=== PATIENT | female | born 1960 | race Caucasian/White ===

== ENCOUNTER → 2017-05-12 | Outpatient (CLI) | payer BC ==
[~2017-05-12] MED LIST: FLOMAX0.4 MG PO; IBUPROFEN PO; IMITREX PO; LASIX PO; NEXIUM; PHENERGAN PO; PROZAC; TYLOX 5/500 CAP1 CAP PO
--- NOTE | ~2017-05-12 | CR63 ---
[facility] A Service of [facility] RADIOLOGY TEXT RESULTS PATIENT: SKYLA KOVACS LOCATION: [facility] : 58 UNIT #: [id number] AGE: [address]: CLARK APONTE APRN SEX: F ORDER DR: [id number] [facility] [address] [place], [place] [address] [id number] O MR#: [id number] Acc #: [id number] NAME: SKYLA KOVACS : 1960 SEX: F STUDY DATE/TIME: 05/12/2017 16:35 UNIT: [facility] ROOM: STUDY DESCRIPTION: CR Chest 2 View Attending Physician: Rosita Aponte Aprn Referring Physician: Rosita Aponte Aprn Ordering Physician: Staff Doctor Not On Primary Care Physician: Isamar Martines A.P.R.N. MEDICAL IMAGING REPORT This report is preliminary unless electronic signature is present EXAM Two-view chest, 05/12/2017. HISTORY 57-year-old female with cough and wheezing for 5 days. COMPARISON STUDIES Comparison chest, 01/14/2008. FINDINGS Two views of the chest demonstrate clear lungs. No pleural effusion or pneumothorax. Heart size and mediastinum are normal. Pulmonary vasculature normal. IMPRESSION No acute cardiopulmonary findings. Dictated by... Shon Thrasher M.D. THIS IS AN ELECTRONICALLY VERIFIED REPORT Shon Thrasher M.D. at 05/15/2017 1:19 PM JANY/mina TD: 05/12/2017 22:25 JOB #: [id number] MEDICAL IMAGING REPORT Page 1 of 1 COPY
== END | disposition home or self-care (01) ==
LOC: CRAD 16:04
DX: R05 Cough (principal); R06.2 Wheezing
CPT/HCPCS: 71020